=== PATIENT | female | born 1990 | race Caucasian/White ===

== ENCOUNTER → 2016-09-19 07:32 | Day surgery (SDC) | payer OTHER ==
[~2016-09-19 07:32] MED LIST: Acetaminophen TAB* 325 MG PO PRN; Buffered Lidocaine 1% SYR 3ML* 3 ML/SYR SYRINGE INTRADERM ONE; Dexamethasone IV* 4 MG/ML 1 ML (4 MG) ONE; DiMENhydriNATE IV* 50 MG/ML VIAL IV PUSH PRN; Famotidine IV* 10 MG/ML 2 ML (20 mg) IV ONE; Famotidine IV* 10 MG/ML 2 ML (20 mg) ONE; HYDROmorphone INJ* 1 MG/ML CARPUJECT SYRINGE IV PRN; Ibuprofen TAB* 600 MG PO PRN; Ketorolac INJ* 30 MG/ML 1 ML VIAL ONE; Lidocaine 2% PF * 5 ML VIAL ONE; Midazolam* 1 MG/ML 5 ML VIAL (5 MG) ONE; Ondansetron INJ* 2 MG/ML VIAL IV PRN; Ondansetron INJ* 2 MG/ML VIAL ONE; Propofol* 10 MG/ML 20 ML BTL IV PUSH ONE; fentaNYL* 50 MCG/ML 2 ML VIAL (100 MCG VIAL) ONE; oxyCODONE/Acetamin 5/325 MG* TAB ONE; oxyCODONE/Acetamin 5/325 MG* TAB PO PRN
[2016-09-19 08:37] LABS: Hematocrit 42 % (35-47); Hemoglobin 14.1 g/dl (12.0-16.0); Mean Corpuscular HGB Conc 34 g/dl (31-36); Mean Corpuscular Hemoglobin 28 pg (27-31); Mean Corpuscular Volume 84 fL (80-97); Mean Platelet Volume 7 um3 (7.4-10.4); Red Blood Count 5.02 10^6/ul (4.0-5.4); Red Cell Distribution Width 13 % (10.5-15); White Blood Count 5.7 10^3/ul (3.5-10.8)
[2016-09-19 10:51] VITALS: BP 139/71
--- NOTE | 2016-09-19 12:29 | OP ---
DATE OF OPERATION: 09/19/16 - [facility] DATE OF : 86 SURGEON: Devendra Gomez MD. ANESTHESIOLOGIST: Dr. Wu. ANESTHESIA: MAC PRE-OP DIAGNOSIS: Missed at 8 weeks. POST-OP DIAGNOSIS: Missed at 8 weeks. OPERATIVE PROCEDURE: Dilation and vacuum curettage. ESTIMATED BLOOD LOSS: Less than 20 cc. SPECIMENS: Endometrial curetting, products of conception. FLUIDS: Per anesthesia. DRAINS: None. FINDINGS: Eight-week size anteverted uterus, midline cervix. No adnexal masses palpated. Moderate products of conception. COMPLICATIONS: None. COUNT: Sponge count correct x2. CONDITION: The patient was brought to the recovery room awake and in stable condition. DESCRIPTION OF PROCEDURE: The patient was brought to the operating room. When anesthesia was found to be adequate, the patient was prepped and draped in the usual sterile fashion in the dorsal lithotomy position. Exam under anesthesia was performed. The weighted speculum was placed in the vagina, the anterior lip of the cervix was grasped with a single-tooth tenaculum. The cervix was gently and easily dilated with graduated Rodas dilators. The size 8 suction curette was advanced. The uterus was evacuated. A good uterine cry was felt throughout. The single-tooth tenaculum was removed from the anterior lip of the cervix. There was a small amount of oozing from the right tenaculum site. Pressure was held on the cervix with the polyp forceps. The polyp forceps was then removed. Excellent hemostasis was noted. All instruments were removed from the vagina. The patient tolerated the procedure well and was brought to the recovery room awake and in stable condition. [id number]/[facility] #: [id number] [facility]
== END | disposition home or self-care (01) ==
LOC: OR 07:32
PROVIDERS: ATTEND Obstetrics & Gynecology
DX: O02.1 Missed abortion (principal)
CPT/HCPCS: 36415; 85025; 86850; 86900; 86901; 88305; A9270-GY; J1100; J1885; J2250; J2405; J2704; J3010

== ENCOUNTER 2018-06-12 11:55 | Inpatient (IN) | payer OTHER ==
[2018-06-12] MEDS ORDERED: Dinoprostone* 10 MG VAG.SUPP VAGINAL ONE (13:18)
--- NOTE | 2018-06-12 13:27 | HP ---
General Information - Reason for Visit 28yo , 39+0 wks with GDMA2, taking about 32U NPH each night. PP fingersticks have been almost all normal and fastings controlled with PM NPH. Here for induction today, no complaints. Very active FMs. - General Information Maternal Age: 28 Grav: 2 Para: 0 SAB: 1 IEA: 0 Estimated Due Date: 06/19/18 Determined By: Early Ultrasound Gestational Age in Weeks/Days: 39+0 Maternal Blood Type and Rh: A Positive - Results this Serology/RPR Result: Non-Reactive Rubella Result: Immune HBsAg Result: Negative HIV Result: Negative GBS Culture Result: Negative Past Medical History Delivery History: See Records - none Pertinent Past Medical History: See Records - none Pertinent Past Surgical History: See Records - elbow, D&C Pertinent Family History: Non-Contributory - Antepartal Records Antepartal Records: Reviewed, Complicated by: - GDMA2 Review of Systems Constitutional: Comfortable CV Complaint: No Respiratory: Shortness of Breath: No Gastrointestinal: No Nausea/Vomiting Genitourinary: No Dysuria, No Bleeding, No Leaking Fluid Musculoskeletal: Contractions - only feel like pressure, no pain Neurological: No Headache Movement: Normal Exam Allergies/Adverse Reactions: Allergies No Known Allergies Allergy (Verified 09/19/16 07:41) Vital Signs 06/12/18 12:08 Temperature 98.0 F Pulse Rate 95 Respiratory 18 Rate Blood Pressure 118/67 (mmHg) O2 Sat by Pulse 98 Oximetry Lab Values - Entire Visit: Laboratory Tests 06/12/18 12:25 POC Glucose (mg/dL) 71 - Measurements Height: 5 ft 8 in Weight: 204 lb Weight in lbs: 204.609172 Body Mass Index (BMI): 31.0 Pre- Weight: 195 lb Weight Gained This : 9 lbs and 0 ozs - Exam Breast: Breast Exam Deferred Heart: Normal Rhythm/Heart Sounds Lungs: Clear Bilaterally Rectal: Rectal Exam Deferred - Abdominal Exam Abdomen Exam: Non-Tender, Fundal Height Consistent with Dates - Ultrasound/Biophysical Profile Ultrasound Status: Not Done Targeted Exam Findings Estimated Weight: 7 lbs Cervical Exam: Closed Station: -2 Presenting Part: Vertex Membrane Status: Intact Bleeding/Discharge: None EFM Findings - External Monitor Findings Baseline Heart Rate: 120 External Monitor Findings: Accelerations Present - (many), No Pattern of Variable or Late Decelerations, Variability Moderate, Baseline Stable Contractions: Irregular, Mild Contraction Frequency: Q2-5 Assessment/Plan - Assessment 39 wks with GDMA2 here for induction. Extremely reassuring status. Having some very mild, irreg ctx, but cervix still closed so will place cervidil for ripening. - Obstetrical Risk Factors Obstetrical Risk Factors: Gestational Diabetes, Possible Sepsis - Plan Plan: Cervical Ripening, Admit - Anticipate Vaginal Delivery - Date/Time of Admission Date of Admission: 06/12/18 Time of Admission: 13:15
[2018-06-12] MEDS ORDERED: Misoprostol TAB* 100 MCG VAGINAL ONE (23:16)
[2018-06-12] MEDS ORDERED: Misoprostol TAB* 100 MCG ONE (23:17)
[2018-06-13] MEDS ORDERED: Misoprostol TAB* 100 MCG PO ONE (03:45)
--- NOTE | 2018-06-13 09:55 | PN ---
Progress Note - Progress Note Date of Service: 06/13/18 Note: Talked with pt and . She is feeling a little bit more uncomfortable since Dr. Camacho stripped her membranes. Discussed options for another dose of cytotec vs davis balloon w/ or w/out pit or just pit. Pt ended up opting to start pitocin and see how her body responds. She is aware she will need to have continuous monitoring but can be mobile with the portable monitor.
[2018-06-13] MEDS ORDERED: Oxytocin in LR* 20 UNITS/1,000 ML BAG IVPB SCH ×2 (10:00→22:00)
[2018-06-13 10:17] LABS: ABS Basophils 0 10^3/ul (0-0.2); ABS Eosinophils 0.1 10^3/ul (0-0.6); ABS Lymphocytes 1.3 10^3/ul (1.0-4.8); ABS Monocytes 0.7 10^3/ul (0-0.8); ABS Neutrophils 9.4 10^3/ul (1.5-7.7); ABS Nucleated RBC 0 10^3/ul; Eosinophil % 0.6 %; Hematocrit 36 % (35-47); Lymphocyte % 11.2 %; Mean Corpuscular HGB Conc 34 g/dl (31-36); Mean Corpuscular Hemoglobin 27 pg (27-31); Mean Corpuscular Volume 81 fL (80-97); Mean Platelet Volume 8.6 fL (7.4-10.4); Nucleated Red Blood Cells % 0; Platelet Count 243 10^3/ul (150-450); Red Blood Count 4.44 10^6/ul (4.00-5.40); Red Cell Distribution Width 14 % (10.5-15); White Blood Count 11.4 10^3/ul (3.5-10.8)
[2018-06-13] MEDS ORDERED: Nalbuphine* 10 MG/ML 1 ML VIAL IV PRN (16:31)
[2018-06-13] MEDS ORDERED: Promethazine INJ(RESTRICTED)* 25 MG/ML 1 ML VIAL IV ONE (16:31)
[2018-06-13] MEDS ORDERED: Dibucaine 1% 28.35 GM TUBE PR PRN (21:07)
[2018-06-13] MEDS ORDERED: Acetaminophen TAB* 325 MG PO PRN (21:07)
[2018-06-13] MEDS ORDERED: Glycerin ADULT SUPP PR PRN (21:07)
[2018-06-13] MEDS ORDERED: Witch Hazel PAD* JAR TOPICAL PRN (21:07)
[2018-06-13] MEDS: Ibuprofen TAB* 600 MG PO PRN (22:52)
[2018-06-14] MEDS: Ibuprofen TAB* 600 MG PO PRN ×3 (05:21→17:41)
[2018-06-14 06:25] LABS: ABS Basophils 0 10^3/ul (0-0.2); ABS Eosinophils 0 10^3/ul (0-0.6); ABS Lymphocytes 1.5 10^3/ul (1.0-4.8); ABS Monocytes 1.4 10^3/ul (0-0.8); ABS Neutrophils 14.3 10^3/ul (1.5-7.7); ABS Nucleated RBC 0 10^3/ul; Eosinophil % 0 %; Hematocrit 31 % (35-47); Hemoglobin 10.3 g/dl (12.0-16.0); Lymphocyte % 8.7 %; Mean Corpuscular HGB Conc 33 g/dl (31-36); Mean Corpuscular Hemoglobin 27 pg (27-31); Mean Corpuscular Volume 81 fL (80-97); Mean Platelet Volume 8.4 fL (7.4-10.4); Nucleated Red Blood Cells % 0; Platelet Count 229 10^3/ul (150-450); Red Blood Count 3.84 10^6/ul (4.00-5.40); Red Cell Distribution Width 14 % (10.5-15); White Blood Count 17.2 10^3/ul (3.5-10.8)
[2018-06-14] MEDS ORDERED: Simethicone TAB* 80 MG TAB.CHEW PO SCH (08:30)
[2018-06-14] MEDS ORDERED: Ferrous Gluconate TAB* 324 MG TAB PO SCH (09:00)
[2018-06-14] MEDS: Docusate CAP* 100 MG PO SCH ×3 (09:29→20:06)
--- NOTE | 2018-06-14 12:06 | PROCNOTE ---
[facility] OB: Delivery Note - Delivery A Date of : 06/13/18 Time of : 20:25 [place] Weight at : 6 lb 11 oz Score 1 Minute: 9 Score 5 Minutes: 10 Gestational Age in Weeks and Days at Delivery: 39 Weeks and 1 Days Delivery Method: Spontaneous Vaginal Labor: Induced Did Patient attempt ?: N/A, No Previous Amniotic Fluid: Clear Anesthesia/Analgesia: Nitrous-Labor Delivered By: Avis Murillo - Nursery Level of Nursery: Regular/Bedside - Perineum Perineal Injury: 2nd Degree - Events Delivery Events of Note: Pitocin During Labor - Additional Delivery Notes Additional Delivery Notes: Pt arrived for induction due to GDM on insulin at 39wks. She received 1 cervidil and 1 dose of cytotec. She was dilated to 1cm and underwent membrane stripping then decided to start pitocin. She progressed very slowly, received nubain/phenergan and then started using nitrous oxide. She was soon found to be 5cm and then progressed very quickly to fully dilated in less than 30min. She began pushing and pushed for about 90min to deliver the in CARINA position. Shoulders delivered through a nuchal cord. Mom returned to lying on her back and baby was placed on her abdomen. After >1min the cord was clamped x2 and cut. The placenta delivered with fundal massage and gentle cord traction. A small 2nd degree tear was repaired with 3-0 vicryl. Fundus was firm and good hemostasis. Mom and baby stable. Baby girl named Korina.
[2018-06-15] MEDS: Ibuprofen TAB* 600 MG PO PRN (05:21)
[2018-06-15 07:25] VITALS: BP 106/63
[2018-06-15] MEDS: Docusate CAP* 100 MG PO SCH (09:05)
== END 2018-06-15 13:25 | disposition home or self-care (01) | DRG 807 ==
LOC: MCHOBOUT 11:55 → MCHOB 13:23
PROVIDERS: ADMIT Obstetrics & Gynecology; ATTEND Obstetrics & Gynecology
PROC: 10E0XZZ Delivery of Products of Conception, External Approach (ICD-10-PCS; principal; 2018-06-13)
PROC: 0KQM0ZZ Repair Perineum Muscle, Open Approach (ICD-10-PCS; 2018-06-13)
PROC: 3E033VJ Introduction of Other Hormone into Peripheral Vein, Percutaneous Approach (ICD-10-PCS; 2018-06-13)
DX: O24.424 Gestational diabetes mellitus in childbirth, insulin controlled (principal); Z37.0 Single live birth; O70.1 Second degree perineal laceration during delivery; Z3A.39 39 weeks gestation of pregnancy
CPT/HCPCS: 36415; 85025; 86850; 86900; 86901; A9270-GY; J2300; J2550; S0191